=== PATIENT | male | born 1955 | race African-American/Black ===

== ENCOUNTER 2022-07-26 15:31 | Inpatient (IN) | payer OTHER ==
[~2022-07-26] VITALS: Ht 182.9 cm; Wt 122.0 kg
[2022-07-26 16:59] VITALS: BP 159/103
[2022-07-26 17:11] LABS: Basophils # (auto) 0.1 10 ^3/uL (0-0.2); Basophils % (auto) 1.2 % (0.0-2.0); Eosinophils # (auto) 0.1 10 ^3/uL (0-0.8); Eosinophils % (auto) 1.3 % (0.0-7.0); Hemoglobin 8.5 g/dL (13.5-17.5); Lymphocytes # (auto) 2.2 10 ^3/uL (0.4-5.4); Lymphocytes % (auto) 27.8 % (10.0-50.0); Mean Corpuscular Hemoglobin 19.7 pg (28.0-32.0); Mean Corpuscular Hgb Conc. 30.2 g/dL (32.0-36.0); Mean Corpuscular Volume 65.2 fL (80.0-100.0); Monocytes # (auto) 0.6 10 ^3/uL (0-1.3); Monocytes % (auto) 6.9 % (0.0-12.0); Neutrophils % (auto) 62.8 % (37.0-80.0); Nucleated Red Blood Cells % 0.5 %
[2022-07-26 17:12] LABS: Red Cell Distribution Width 22.9 % (11.8-14.3)
[2022-07-26 17:23] LABS: Calcium 8.9 mg/dL (8.5-10.1); Magnesium 2.2 mg/dL (1.6-2.6); Potassium 3.8 mmol/L (3.5-5.1)
[2022-07-26 17:24] VITALS: BP 159/103
[2022-07-26 17:27] LABS: BUN/Creatinine Ratio 8.9 (10.0-20.0); Bilirubin, Total 1.2 mg/dL (0.2-1.0); Total Protein 8.3 g/dL (6.4-8.2)
[2022-07-26 17:29] LABS: INR 1.38 (0.9-1.15); Partial Thromboplastin Time 30.5 sec (24.6-33.4)
[2022-07-26] MEDS ORDERED: ALBUTEROL SULF 2.5 MG/0.5ML(0.5%) NEB SOLN NEB ONE (17:45)
[2022-07-26] MEDS ORDERED: DexAMETHasone SOD PHOS 10MG/1ML VIAL INJ IV ONE (17:45)
[2022-07-26] MEDS ORDERED: FUROSEMIDE 100 MG/10ML VIAL IV ONE (17:45)
[2022-07-26] MEDS ORDERED: IPRATROPIUM BROM 0.5 MG/2.5ML INH SOL NEB ONE (17:45)
[2022-07-26] MEDS ORDERED: DOXYCYCLINE 100 MG TAB/CAP PO ONE (18:00)
[2022-07-26 18:32] VITALS: BP 173/103
[2022-07-26] MEDS: MAGNESIUM SULFATE 1GM/100ML 100 ML IV SCH ×2 (18:59→22:51)
[2022-07-26 19:55] VITALS: BP 170/109
[2022-07-26] MEDS ORDERED: ONDANSETRON HCL 4 MG/2 ML VIAL IV PRN (22:45)
[2022-07-26] MEDS ORDERED: DEXTROSE (50%) 50ML SYRG IV PRN (22:45)
[2022-07-26] MEDS ORDERED: ALBUTEROL SULF 2.5 MG/0.5ML(0.5%) NEB SOLN NEB PRN (22:45)
[2022-07-26] MEDS ORDERED: HYDROcodone-ACET 5/325MG TAB PO PRN (22:45)
[2022-07-26] MEDS ORDERED: DOCUSATE SOD 100 MG CAP PO PRN (22:45)
[2022-07-26] MEDS ORDERED: ACETAMINOPHEN 325 MG TAB PO PRN (22:45)
[2022-07-26] MEDS ORDERED: IPRATROPIUM BROM 0.5 MG/2.5ML INH SOL NEB PRN (22:45)
[2022-07-26] MEDS ORDERED: MAGNESIUM SULFATE 1GM/100ML 100 ML IV ONE (22:51)
[2022-07-26] MEDS ORDERED: NITROGLYCERIN 0.4 MG SL TAB SL PRN (23:45)
[2022-07-26] MEDS ORDERED: MORPHINE SULFATE INJ 2 MG/ml SYRG IV PRN (23:45)
[2022-07-27] VITALS (8 sets, daily range): BP systolic 138–184; BP diastolic 85–113
[2022-07-27] MEDS: hydrALAZINE HCL 20 MG/ML VL IV PRN ×2 (00:29→12:40)
[2022-07-27] MEDS ORDERED: hydrALAZINE HCL 20 MG/ML VL ONE (00:29)
[2022-07-27 00:52] LABS: Urine Bacteria NONE SEEN /hpf (None Seen); Urine Blood Negative /uL (Negative); Urine Specific Gravity 1.007 (1.001-1.035); Urine WBC 1 /hpf (0 - 3)
[2022-07-27] MEDS: DOXYCYCLINE 100MG/250ML 250 ML IV SCH ×3 (00:55→22:28)
[2022-07-27] MEDS ORDERED: amLODIPine BESYLATE 5 MG TAB PO ONE (05:00)
[2022-07-27] MEDS ORDERED: hydrALAZINE HCL 20 MG/ML VL IV ONE (05:00)
[2022-07-27 05:45] LABS: Basophils # (auto) 0 10 ^3/uL (0-0.2); Eosinophils # (auto) 0 10 ^3/uL (0-0.8); Hematocrit 27.7 % (41.0-53.0); Hemoglobin 8.4 g/dL (13.5-17.5); Monocytes # (auto) 0.1 10 ^3/uL (0-1.3)
[2022-07-27 05:48] LABS: Basophils % (auto) 0.2 % (0.0-2.0); Lymphocytes # (auto) 0.3 10 ^3/uL (0.4-5.4); Lymphocytes % (auto) 6.5 % (10.0-50.0); Mean Corpuscular Hemoglobin 19.6 pg (28.0-32.0); Mean Corpuscular Hgb Conc. 30.3 g/dL (32.0-36.0); Mean Corpuscular Volume 64.9 fL (80.0-100.0); Monocytes % (auto) 1.9 % (0.0-12.0); Neutrophils # (auto) 4.5 10 ^3/uL (1.6-8.6); Neutrophils % (auto) 91.4 % (37.0-80.0); Nucleated Red Blood Cells % 1.1 %; Red Blood Cells 4.26 10^6/uL (4.5-5.90); White Blood Cell 4.9 10^3/uL (4.4-10.8)
[2022-07-27 05:52] LABS: Red Cell Distribution Width 22.5 % (11.8-14.3)
[2022-07-27] MEDS: SODIUM CHLOR 0.9% PF (SALINE LOCK) 10ML VIAL/SYR IV SCH ×3 (05:59→22:02)
[2022-07-27] MEDS ORDERED: methylPREDNISolone SOD SUCC 40 MG/ML VL IV SCH (06:00)
[2022-07-27 06:07] LABS: Potassium 3.7 mmol/L (3.5-5.1)
[2022-07-27 06:29] LABS: BUN/Creatinine Ratio 13.1 (10.0-20.0); Bilirubin, Total 0.8 mg/dL (0.2-1.0); Total Protein 8.7 g/dL (6.4-8.2)
[2022-07-27] MEDS: ACCU-CHEK COMFORT CURVE STRIP VI SCH ×4 (07:03→22:02)
[2022-07-27] MEDS: InsuLIN REG 1unit/0.01ml Soln (100units/ml) SC SCH ×4 (07:12→22:32)
[2022-07-27] MEDS ORDERED: ALBUTEROL SULF 2.5 MG/0.5ML(0.5%) NEB SOLN NEB PRN (09:00)
[2022-07-27] MEDS ORDERED: OSELTAMIVIR 75 MG CAP PO ONE (10:45)
[2022-07-27] MEDS: FUROSEMIDE 100 MG/10ML VIAL IV SCH (10:55)
[2022-07-27] MEDS: FAMOTIDINE (10MG/ML) 2ML VL IV SCH (10:55)
[2022-07-27] MEDS: ASPirin 81 mg TAB PO SCH (10:55)
[2022-07-27] MEDS: amLODIPine BESYLATE 5 MG TAB PO SCH (10:56)
[2022-07-27] MEDS: CARVEDILOL 12.5 MG TAB PO SCH ×2 (10:56→22:02)
[2022-07-27] MEDS: APIXABAN 5 MG TAB PO SCH ×2 (10:56→21:58)
[2022-07-27] MEDS: ALBUTEROL SULF 2.5 MG/0.5ML(0.5%) NEB SOLN NEB SCH ×3 (11:50→23:56)
[2022-07-27] MEDS: IPRATROPIUM BROM 0.5 MG/2.5ML INH SOL NEB SCH ×3 (11:50→23:56)
[2022-07-27] MEDS ORDERED: AMLO-489 PO (13:25)
[2022-07-27] MEDS ORDERED: POTA10TA51 PO (13:25)
[2022-07-27] MEDS ORDERED: LOSA25TA38 PO (13:25)
[2022-07-27] MEDS ORDERED: ALBU108A5 IN (13:25)
[2022-07-27] MEDS ORDERED: FLUT0.05 INH (13:25)
[2022-07-27] MEDS ORDERED: INSU1INJ19 SC (13:25)
[2022-07-27] MEDS ORDERED: IBUP800T27 PO (13:25)
[2022-07-27] MEDS ORDERED: APIX5TAB PO (13:25)
[2022-07-27] MEDS ORDERED: NORT25CA PO (13:25)
[2022-07-27] MEDS ORDERED: INSU100I44 SC (13:25)
[2022-07-27] MEDS ORDERED: BUME1TAB3 PO (13:25)
[2022-07-27] MEDS ORDERED: PRAV20TA3 PO (13:25)
[2022-07-27] MEDS ORDERED: ATEN50TA PO (13:25)
[2022-07-27] MEDS ORDERED: SILD100T79 PO (13:25)
[2022-07-27] MEDS ORDERED: ASPI-543 PO (13:25)
[2022-07-27] MEDS: OSELTAMIVIR 75 MG CAP PO SCH (21:58)
[2022-07-28 02:55] VITALS: BP 131/86
[2022-07-28 05:26] LABS: Basophils # (auto) 0 10 ^3/uL (0-0.2); Basophils % (auto) 0.2 % (0.0-2.0); Eosinophils # (auto) 0 10 ^3/uL (0-0.8); Mean Corpuscular Volume 64.6 fL (80.0-100.0); Monocytes # (auto) 0.9 10 ^3/uL (0-1.3); Nucleated Red Blood Cells % 0.4 %; White Blood Cell 8.7 10^3/uL (4.4-10.8)
[2022-07-28 05:30] LABS: Hematocrit 24.7 % (41.0-53.0); Hemoglobin 7.6 g/dL (13.5-17.5); Lymphocytes # (auto) 0.8 10 ^3/uL (0.4-5.4); Lymphocytes % (auto) 9.3 % (10.0-50.0); Monocytes % (auto) 10.5 % (0.0-12.0); Red Blood Cells 3.82 10^6/uL (4.5-5.90)
[2022-07-28 05:36] LABS: Red Cell Distribution Width 22.8 % (11.8-14.3)
[2022-07-28 05:48] LABS: Albumin 2.6 g/dL (3.4-5.0)
[2022-07-28 05:54] LABS: BUN/Creatinine Ratio 18.4 (10.0-20.0); Bilirubin, Total 0.6 mg/dL (0.2-1.0); Total Protein 7.3 g/dL (6.4-8.2)
[2022-07-28] MEDS: SODIUM CHLOR 0.9% PF (SALINE LOCK) 10ML VIAL/SYR IV SCH ×3 (06:12→22:01)
[2022-07-28] MEDS: ACCU-CHEK COMFORT CURVE STRIP VI SCH ×4 (06:24→22:02)
[2022-07-28] MEDS: InsuLIN REG 1unit/0.01ml Soln (100units/ml) SC SCH ×4 (06:31→22:04)
[2022-07-28] MEDS: IPRATROPIUM BROM 0.5 MG/2.5ML INH SOL NEB SCH ×3 (06:48→23:00)
[2022-07-28] MEDS: ALBUTEROL SULF 2.5 MG/0.5ML(0.5%) NEB SOLN NEB SCH ×3 (06:48→23:00)
[2022-07-28 08:32] VITALS: BP 164/69
[2022-07-28] MEDS: FUROSEMIDE 100 MG/10ML VIAL IV SCH (09:14)
[2022-07-28] MEDS: ASPirin 81 mg TAB PO SCH (09:15)
[2022-07-28] MEDS: CARVEDILOL 12.5 MG TAB PO SCH ×2 (09:15→22:02)
[2022-07-28] MEDS: APIXABAN 5 MG TAB PO SCH ×2 (09:15→22:02)
[2022-07-28] MEDS: FAMOTIDINE (10MG/ML) 2ML VL IV SCH (09:15)
[2022-07-28] MEDS: OSELTAMIVIR 75 MG CAP PO SCH ×2 (09:16→22:02)
[2022-07-28] MEDS: amLODIPine BESYLATE 5 MG TAB PO SCH (09:16)
[2022-07-28] MEDS: DOXYCYCLINE 100MG/250ML 250 ML IV SCH ×2 (11:01→22:02)
[2022-07-28] MEDS: hydrALAZINE HCL 20 MG/ML VL IV PRN (12:13)
[2022-07-28 12:42] VITALS: BP 160/108
[2022-07-28] MEDS ORDERED: ALBUTEROL SULF 2.5 MG/0.5ML(0.5%) NEB SOLN NEB PRN (15:00)
[2022-07-28 16:31] VITALS: BP 111/73
[2022-07-28 22:00] VITALS: BP 134/84
[2022-07-29 05:00] VITALS: BP 153/83
[2022-07-29] MEDS: ACCU-CHEK COMFORT CURVE STRIP VI SCH ×4 (06:22→22:20)
[2022-07-29] MEDS: SODIUM CHLOR 0.9% PF (SALINE LOCK) 10ML VIAL/SYR IV SCH ×3 (06:22→22:21)
[2022-07-29] MEDS: InsuLIN REG 1unit/0.01ml Soln (100units/ml) SC SCH ×4 (06:27→22:20)
[2022-07-29] MEDS: IPRATROPIUM BROM 0.5 MG/2.5ML INH SOL NEB SCH ×3 (06:53→19:16)
[2022-07-29] MEDS: ALBUTEROL SULF 2.5 MG/0.5ML(0.5%) NEB SOLN NEB SCH ×3 (06:53→19:16)
[2022-07-29 09:00] VITALS: BP 137/86
[2022-07-29] MEDS: FUROSEMIDE 100 MG/10ML VIAL IV SCH (09:52)
[2022-07-29] MEDS: FAMOTIDINE (10MG/ML) 2ML VL IV SCH (09:52)
[2022-07-29] MEDS: ASPirin 81 mg TAB PO SCH (09:52)
[2022-07-29] MEDS: APIXABAN 5 MG TAB PO SCH ×2 (09:53→22:19)
[2022-07-29] MEDS: CARVEDILOL 12.5 MG TAB PO SCH ×2 (09:53→22:19)
[2022-07-29] MEDS: amLODIPine BESYLATE 5 MG TAB PO SCH (09:53)
[2022-07-29] MEDS: OSELTAMIVIR 75 MG CAP PO SCH ×2 (09:53→22:18)
[2022-07-29] MEDS: DOXYCYCLINE 100MG/250ML 250 ML IV SCH ×2 (09:54→22:21)
[2022-07-29 13:00] VITALS: BP 132/75
[2022-07-29 17:00] VITALS: BP 152/69
[2022-07-29] MEDS: hydrALAZINE HCL 20 MG/ML VL IV PRN (17:22)
[2022-07-29 22:00] VITALS: BP 189/99
[2022-07-29 23:58] VITALS: BP 142/86
[2022-07-30] MEDS: ALBUTEROL SULF 2.5 MG/0.5ML(0.5%) NEB SOLN NEB SCH ×4 (00:18→11:35)
[2022-07-30] MEDS: IPRATROPIUM BROM 0.5 MG/2.5ML INH SOL NEB SCH ×4 (00:19→11:35)
[2022-07-30 05:00] VITALS: BP 184/100
[2022-07-30] MEDS: SODIUM CHLOR 0.9% PF (SALINE LOCK) 10ML VIAL/SYR IV SCH (06:00)
[2022-07-30] MEDS: ACCU-CHEK COMFORT CURVE STRIP VI SCH ×2 (06:32→11:57)
[2022-07-30] MEDS: InsuLIN REG 1unit/0.01ml Soln (100units/ml) SC SCH ×3 (06:33→12:17)
[2022-07-30] MEDS ORDERED: cloNIDine HCL 0.1 MG TAB PO ONE (06:45)
[2022-07-30 08:30] VITALS: BP 139/76
[2022-07-30] MEDS: OSELTAMIVIR 75 MG CAP PO SCH (08:44)
[2022-07-30] MEDS: ASPirin 81 mg TAB PO SCH (08:44)
[2022-07-30] MEDS: APIXABAN 5 MG TAB PO SCH (08:44)
[2022-07-30] MEDS: FUROSEMIDE 100 MG/10ML VIAL IV SCH (08:45)
[2022-07-30] MEDS: CARVEDILOL 12.5 MG TAB PO SCH (08:45)
[2022-07-30] MEDS: FAMOTIDINE (10MG/ML) 2ML VL IV SCH (08:45)
[2022-07-30] MEDS: amLODIPine BESYLATE 5 MG TAB PO SCH (08:45)
[2022-07-30 09:00] VITALS: BP 139/76
[2022-07-30] MEDS: DOXYCYCLINE 100MG/250ML 250 ML IV SCH (09:17)
[2022-07-30 13:38] LABS: Hepatitis C Antibody Negative (Negative)
== END 2022-07-30 13:11 | disposition left against medical advice (07) | DRG 291 ==
LOC: ER 15:31 → TELE 23:43 → TELE-EAST 07-27 08:05
PROVIDERS: ADMIT Nurse Practitioner Family; ATTEND Internal Medicine
PROC: 5A09357 Assistance with Respiratory Ventilation, Less than 24 Consecutive Hours, Continuous Positive Airway Pressure (ICD-10-PCS; principal; 2022-07-26)
PROC: 5A09357 Assistance with Respiratory Ventilation, Less than 24 Consecutive Hours, Continuous Positive Airway Pressure (ICD-10-PCS; 2022-07-27)
PROC: 5A09357 Assistance with Respiratory Ventilation, Less than 24 Consecutive Hours, Continuous Positive Airway Pressure (ICD-10-PCS; 2022-07-28)
PROC: 5A09357 Assistance with Respiratory Ventilation, Less than 24 Consecutive Hours, Continuous Positive Airway Pressure (ICD-10-PCS; 2022-07-30)
DX: I50.33 Acute on chronic diastolic (congestive) heart failure (principal); J11.00 Influenza due to unidentified influenza virus with unspecified type of pneumonia; J96.01 Acute respiratory failure with hypoxia; N17.9 Acute kidney failure, unspecified; J44.0 Chronic obstructive pulmonary disease with (acute) lower respiratory infection; J44.1 Chronic obstructive pulmonary disease with (acute) exacerbation; J98.11 Atelectasis; Z68.43 Body mass index [BMI] 50.0-59.9, adult; Z20.822 Contact with and (suspected) exposure to COVID-19; D63.8 Anemia in other chronic diseases classified elsewhere; E66.01 Morbid (severe) obesity due to excess calories; I16.0 Hypertensive urgency; E11.9 Type 2 diabetes mellitus without complications; G47.33 Obstructive sleep apnea (adult) (pediatric); I48.91 Unspecified atrial fibrillation; Z53.29 Procedure and treatment not carried out because of patient's decision for other reasons; Z82.49 Family history of ischemic heart disease and other diseases of the circulatory system; Z87.891 Personal history of nicotine dependence
CPT/HCPCS: 36415; 36600; 71045; 71250; 80053; 81001; 82805; 82962; 83036; 83735; 83880; 84484; 85025; 85610; 85730; 86803; 87070; 87077; 87186; 87205; 87340; 87426; 87804; 93005; 93306; 94640; 94660; 96365; 96375; 99291; G0378; J1100; J1815; J3490

== ENCOUNTER 2023-10-11 11:50 | Emergency (ER) | payer MEDICARE, OTHER ==
[~2023-10-11] VITALS: Ht 182.9 cm; Wt 153.0 kg
[~2023-10-11 11:50] MED LIST: ALBU108A5 IN; AMLO1TAB22 PO; APIX5TAB PO; ASPI-543 PO; ATEN50TA PO; BUME1TAB3 PO; FLUT0.05 INH; IBUP-1456 PO; INSU100I54 SC; INSU1INJ19 SC; LOSA-533 PO; NORT25CA PO; POTA-36 PO; PRAV20TA3 PO; SILD100T79 PO
[2023-10-11 16:10] VITALS: BP 140/83; PULSE 78; RESP 19; TEMP 97.6; O2SAT 99
[2023-10-11 16:27] LABS: Chloride 96 mmol/L (98-107); Potassium 4.1 mmol/L (3.5-5.1); Sodium 133 mmol/L (136-145)
[2023-10-11 16:28] LABS: Anion Gap 8 (5-15); Calcium 9.5 mg/dL (8.7-10.4); Carbon Dioxide 29 mmol/L (20-30)
[2023-10-11 16:33] LABS: BUN/Creatinine Ratio 6.2 (10.0-20.0); Blood Urea Nitrogen 25 mg/dL (9-23); Glucose 337 mg/dL (74-106)
[2023-10-11 16:34] LABS: Magnesium 1.7 mg/dL (1.6-2.6)
[2023-10-11 16:35] LABS: Phosphorus 2.9 mg/dL (2.4-5.1)
[2023-10-11 16:37] LABS: Basophils # (auto) 0.1 10 ^3/uL (0-0.2); Eosinophils # (auto) 0.4 10 ^3/uL (0-0.8); Eosinophils % (auto) 6.1 % (0.0-7.0); Hematocrit 34.9 % (41.0-53.0); Hemoglobin 11.7 g/dL (13.5-17.5); Lymphocytes # (auto) 1.4 10 ^3/uL (0.4-5.4); Lymphocytes % (auto) 22.5 % (10.0-50.0); Mean Corpuscular Hemoglobin 27.7 pg (28.0-32.0); Mean Corpuscular Hgb Conc. 33.5 g/dL (32.0-36.0); Mean Corpuscular Volume 82.5 fL (80.0-100.0); Monocytes # (auto) 0.7 10 ^3/uL (0-1.3); Monocytes % (auto) 11.3 % (0.0-12.0); Neutrophils # (auto) 3.7 10 ^3/uL (1.6-8.6); Neutrophils % (auto) 59.1 % (37.0-80.0); Nucleated Red Blood Cells % 0.1 %; Red Blood Cells 4.23 10^6/uL (4.5-5.90); Red Cell Distribution Width 15.3 % (11.8-14.3); White Blood Cell 6.3 10^3/uL (4.4-10.8)
[2023-10-11] MEDS: METOCLOPRAMIDE HCL 5MG/ml INJ 2ml VIAL IV ONE (17:40)
== END 2023-10-11 17:50 | disposition home or self-care (01) ==
LOC: ER 11:50
DX: T82.7XXA Infection and inflammatory reaction due to other cardiac and vascular devices, implants and grafts, initial encounter (principal); M79.601 Pain in right arm; R25.2 Cramp and spasm; I13.2 Hypertensive heart and chronic kidney disease with heart failure and with stage 5 chronic kidney disease, or end stage renal disease; E11.22 Type 2 diabetes mellitus with diabetic chronic kidney disease; N18.6 End stage renal disease; I50.9 Heart failure, unspecified; I48.91 Unspecified atrial fibrillation; J44.9 Chronic obstructive pulmonary disease, unspecified; Z98.890 Other specified postprocedural states; Z99.2 Dependence on renal dialysis; Z79.82 Long term (current) use of aspirin; Z79.899 Other long term (current) drug therapy; Y92.89 Other specified places as the place of occurrence of the external cause
CPT/HCPCS: 36415; 71046; 80048; 83735; 84100; 85025; 96374; 99284; J2765

== ENCOUNTER 2024-05-28 14:03 | Inpatient (IN) | payer MEDICARE, OTHER ==
[~2024-05-28] VITALS: Ht 190.5 cm; Wt 121.9 kg
--- NOTE | 2024-05-28 14:44 | ED.PDOC ---
HPI (NEURO) HPI Comments 68y M who presents to the ED via EMS for chief complaint of dizziness. Per EMS, pt had CKF and was at dialysis today and staff states they checked vitals before dialysis treatment, and called EMS after pt had noted systolic blood pressure in the 70's and pt started to complaint of dizziness. EMS arrived on scene and laid pt down on gurney and states pt started to feel less dizzy. Pt has BP checked at noted BP was normotensive with all other vitals in normal range and pt was brought to the ED. Pt in the ED, states he is feeling weak with some mild dizziness. Pt states he recently was released from hospital 2 weeks prior after he states he was hospitalized for Sh[place] syndrome. Pt now in the ED, has noted stable vitals with BP of 123/69 with all other vitals in normal range. Pt otherwise denies any other symptoms at this time. Chief Complaint: Dizziness Time Seen by MD: 14:37 Primary Care Provider: NILE Hart Notes: [employer] Notes Information Source: Patient, Emergency Med Personnel Mode of Arrival: EMS Brought in by: EMS Severity: Moderate Dizziness/Weakness Severity: Does not affect activitie Headache Severity: Moderate Timing: Hours Duration: Since onset Prehospital treatment: None Weakness Location: Generalized Onset: At rest Circumstances: Spontaneous Symptoms: Weakness History of: None Modifying factors: Nothing Associated Signs and Symptoms: None Past Medical History PAST MEDICAL HISTORY: AFIB, CHF, CKF, COPD, DM, High Lipids, HTN Past Medical History (Other): gout, shine heath syndrome Surgical History: Hernia Repair Family History Family History: Reviewed,noncontributory to illness Social History Smoker: Non-Smoker Alcohol: Denies ETOH Use Drugs: Denies Drug Use Lives In: Home Constitutional: denies: chills, diaphoresis, fatigue, fever, malaise, sweats, weakness, others EENTM: denies: blurred vision, double vision, ear bleeding, ear discharge, ear drainage, ear pain, ear ringing, eye pain, eye redness, hearing loss, mouth pain, mouth swelling, nasal discharge, nose bleeding, nose congestion, nose pain, photophobia, tearing, throat pain, throat swelling, voice changes, others Respiratory: denies: cough, hemoptysis, orthopnea, SOB at rest, shortness of breath, SOB with excertion, stridor, wheezing, others Cardiovascular: denies: chest pain, dizzy spells, diaphoresis, Dyspnea on exertion, edema, irregular heart beat, left arm pain, lightheadedness, pal pitations, PND, syncope, others Gastrointestinal: denies: abdomen distended, abdominal pain, blood streaked bowels, constipated, diarrhea, dysphagia, difficulty swallowing, hematemesis, melena, nausea, poor appetite, poor fluid intake, rectal bleeding, rectal pain, vomiting, others Genitourinary: denies: burning, dysuria, flank pain, frequency, hematuria, incontinence, penile discharge, penile sore, pain, testicle pain, testicle swelling, urgency, others Neurological: reports: dizziness, weakness; denies: fainting, headache, left sided numbness, left sided weakness, numbness, paresthesia, pre-existing deficit, right sided numbness, right sided weakness, seizure, speech problems, tingling, tremors, others Musculoskeletal: denies: back pain, gout, joint pain, joint swelling, muscle pain, muscle stiffness, neck pain, others Integumetry: denies: bruises, change in color, change in hair/nails, dryness, laceration, lesions, lumps, rash, wounds, others Allergic/Immunocompromised: denies: Difficulty Healing, Frequent Infections, Hives, Itching, others Hematologic/Lymphatic: denies: anemia, blood clots, easy bleeding, easy bruising, swollen glands, others Endocrine: denies: excessive hunger, excessive sweating, excessive thirst, excessive urination, flushing, intolerance to cold, intolerance to heat, unexp lained weight gain, unexplained weight loss, others Psychiatric: denies: anxiety, bipolar disorder, depression, hopeless, panic disorder, schizophrenia, sleepless, suicidal, others All Other Systems: Reviewed and Negative Physical Exam General Appearance: Moderate Distress HEENT: Normal ENT Inspection, Pharynx Normal, TMs Normal Neck: Full Range of Motion, Non-Tender, Normal, Normal Inspection Respiratory: Chest Non-Tender, Lungs Clear, No Accessory Muscle Use, No Respiratory Distress, Normal Breath Sounds Cardiovascular: No Edema, No JVD, No Murmur, No Gallop, Normal Peripheral Pulses, Regular Rate/Rhythm Breast Exam: Deferred Gastrointestinal: No Organomegaly, Non Tender, No Pulsatile Mass, Normal Bowel Sounds, Soft Genitalia: Deferred Pelvic: Deferred Rectal: Deferred Extremities: No calf tenderness, Normal capillary refill, No pedal edema, Other (The dialysis fistulas in the right upper arm) Musculoskeletal : Apperance: Normal Neurologic: Alert, 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 Was a procedure done?: No Differential Diagnosis (SZ) Seizure: N/A General Weakness: Anemia, Dehydration, Dysrhythmia, Hypoglycemia, Hypotension, Hypovolemia, Renal failure, TIA, Vertigo: central, Vertigo: peripheral, Other X-Ray, Labs, Meds, VS Vital Signs Date Time Temp Pulse Resp B/P (MAP) Pulse Ox O2 Delivery O2 Flow Rate FiO2 05/28/24 16:00 62 19 101/85 (90) 99 05/28/24 16:00 62 19 99 Room Air* 0 21 05/28/24 14:46 68 05/28/24 14:43 68 05/28/24 14:16 98.2 62 16 123/69 (87) 93 Lab Test 05/28/24 15:25 Range/Units White Blood Count 5.8 4.4-10.8 10^3/uL Red Blood Count 3.52 L 4.5-5.90 10^6/uL Hemoglobin 9.6 L 13.5-17.5 g/dL Hematocrit 30.1 L 41.0-53.0 % Mean Corpuscular Volume 85.5 80.0-100.0 fL Mean Corpuscular Hemoglobin 27.3 L 28.0-32.0 pg Mean Corpuscular Hemoglobin Concent 31.9 L 32.0-36.0 g/dL Red Cell Distribution Width 16.0 H 11.8-14.3 % Platelet Count 226 140-450 10^3/uL Mean Platelet Volume 8.2 6.9-10.8 fL Neutrophils (%) (Auto) 68.6 37.0-80.0 % Lymphocytes (%) (Auto) 17.4 10.0-50.0 % Monocytes (%) (Auto) 9.6 0.0-12.0 % Eosinophils (%) (Auto) 3.3 0.0-7.0 % Basophils (%) (Auto) 1.1 0.0-2.0 % Neutrophils # (Auto) 4.0 1.6-8.6 10 ^3/uL Lymphocytes # (Auto) 1.0 0.4-5.4 10 ^3/uL Monocytes # (Auto) 0.6 0-1.3 10 ^3/uL Eosinophils # (Auto) 0.2 0-0.8 10 ^3/uL Basophils # (Auto) 0.1 0-0.2 10 ^3/uL Nucleated Red Blood Cells 0.4 % Sodium Level 138 136-145 mmol/L Potassium Level 2.9 L 3.5-5.1 mmol/L Chloride Level 97 L 98-107 mmol/L Carbon Dioxide Level 30 20-31 mmol/L Anion Gap 11 5-15 Blood Urea Nitrogen 26 H 9-23 mg/dL Creatinine 6.93 H 0.700-1.30 mg/dL Glomerular Filtration Rate Calc 8 >90 mL/min BUN/Creatinine Ratio 3.8 L 10.0-20.0 Serum Glucose 85 74-106 mg/dL Calcium Level 9.4 8.7-10.4 mg/dL Magnesium Level 2.0 1.6-2.6 mg/dL Troponin I High Sensitivity 15 </=54 ng/L IV Hep-Lock was established. The CBC and chemistry panel are within normal limits except for anemia with a hemoglobin of 9.6 and hematocrit of 30.1 The BUN is 26 and the creatinine is 6.93 The patient was potassium is 2.9 At this time we are going to admit the patient to the hospitalist We will get a Nephrology consult prior to any supplements of potassium The patient was being admitted Time of 1ST Reevaluation: 15:10 Reevaluation 1ST: Unchanged Patient Education/Counseling: Diagnosis, Treatment, Prognosis Family Education/Counseling: No Family Present Additional Information - I reviewed the following notes from patient's past medical encounters: - The following tests were ordered, and results were reviewed by me: (Labs, X- Ray, EKG): cbc, , trop x3, ekg x3, bmp, , mag - Additional information was gathered from interviewing the following independent Historian: (Family, Other Providers, EMT): EMS - I reviewed and agreed with the following test results read by other provider: (X-ray, CT, US):none - I discussed treatments and results with medical personnel and: (consultants, family): none Departure 1 Departure Time of Disposition: 16:56 Impression: Primary Impression: Generalized weakness Additional Impressions: Hypokalemia ESRD on dialysis Disposition: ADMITTED INPATIENT Admit to: Tele Condition: Fair Critical Care Note Critical Care Time?: Yes (45 min-critical care time only) Stability Stability form required: Yes Unstable for transfer: Telemetry monitoring (Telemetry monitoring required), ED Physician Assesment (Clinical assesment) Heart Score Heart Score: Heart Score Response (Comments) Value History Moderate Suspicious 1 EKG Normal 0 Age >65 2 Risk Factors >3 or Hx ASHD 2 Troponin Normal limit 0 Total 5 I personally scribed for ADY LARSON MD ([email or web address]) on 05/28/24 at 14:44. Electronically submitted by Clarisse Leyva ([employer]). I personally scribed for ADY LARSON MD ([email or web address]) on 05/28/24 at 14:46. Electronically submitted by Clarisse Leyva (MARLEEAmerican GiantSHAYAN). ADY LARSON MD May 28, 2024 14:44
--- NOTE | 2024-05-28 15:06 | ECG ---
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
[2024-05-28 15:53] LABS: Basophils # (auto) 0.1 10 ^3/uL (0-0.2); Basophils % (auto) 1.1 % (0.0-2.0); Eosinophils # (auto) 0.2 10 ^3/uL (0-0.8); Eosinophils % (auto) 3.3 % (0.0-7.0); Hematocrit 30.1 % (41.0-53.0); Hemoglobin 9.6 g/dL (13.5-17.5); Lymphocytes % (auto) 17.4 % (10.0-50.0); Mean Corpuscular Hemoglobin 27.3 pg (28.0-32.0); Mean Corpuscular Hgb Conc. 31.9 g/dL (32.0-36.0); Mean Corpuscular Volume 85.5 fL (80.0-100.0); Monocytes # (auto) 0.6 10 ^3/uL (0-1.3); Monocytes % (auto) 9.6 % (0.0-12.0); Neutrophils % (auto) 68.6 % (37.0-80.0); Nucleated Red Blood Cells % 0.4 %; Platelet Count (auto) 226 10^3/uL (140-450); Red Blood Cells 3.52 10^6/uL (4.5-5.90); White Blood Cell 5.8 10^3/uL (4.4-10.8)
[2024-05-28 15:58] LABS: Sodium 138 mmol/L (136-145)
[2024-05-28 15:59] LABS: Anion Gap 11 (5-15); Carbon Dioxide 30 mmol/L (20-31)
[2024-05-28 16:00] VITALS: PULSE 62; RESP 19; O2SAT 99
[2024-05-28 16:00] LABS: Calcium 9.4 mg/dL (8.7-10.4)
[2024-05-28 16:04] LABS: BUN/Creatinine Ratio 3.8 (10.0-20.0); Glucose 85 mg/dL (74-106)
[2024-05-28 16:06] LABS: Blood Urea Nitrogen 26 mg/dL (9-23); Chloride 97 mmol/L (98-107); Potassium 2.9 mmol/L (3.5-5.1)
[2024-05-28 21:30] VITALS: PULSE 66; RESP 18; O2SAT 99
[2024-05-28] MEDS ORDERED: NITROGLYCERIN 0.4 MG SL TAB SL PRN (22:00)
[2024-05-28] MEDS ORDERED: MORPHINE SULFATE INJ 2 MG/ml SYRG IV PRN (22:00)
[2024-05-29] VITALS (9 sets, daily range): BP systolic 117–139; BP diastolic 61–83; PULSE 60–77; RESP 15–19; TEMP 97.4–98.1; O2SAT 92–99
[2024-05-29] MEDS: POTASSIUM CHL 20 Meq TABLET PO ONE (00:07)
[2024-05-29] MEDS: APIXABAN 5 MG TAB PO SCH (00:08)
[2024-05-29 01:30] LABS: COVID19 ANTIGEN SOFIA FIA NEGATIVE (NEGATIVE); Rapid Influenza A Negative (Negative); Rapid Influenza B Negative (Negative)
--- NOTE | 2024-05-29 03:13 | DVHHPRES ---
History of Present Illness Resident Creating Document: LUCY PHAM RESIDENT Reason for Visit: Hypokalemia History of Present Illness A 68 y old male with PMHx ESRD (dialysis T,Th, S, [facility]), CHF, atrial fibrillation, DM, HTN, COPD, HLD who came BIBA due to hypotension, patient was in dialysis center and was found with BP in the 70s, dialysis was not done. Patient states dizziness. Patient states that he had a SJR due to allopurinal 2 weeks back and was treated in another facility Home meds: Apixaban amlodipine aspirin atenolol bumetanide the fluticasone ibuprofen insulin losartan nortriptyline potassium pravastatin sildenafil Review of Systems Constitutional: No: Fever, Chills, Sweats, Weakness, Malaise, Other Eyes: No: Pain, Vision change, Conjunctivae inflammation, Eyelid inflammation, Other, Redness ENT: No: Ear pain, Ear discharge, Nose pain, Nose discharge, Nose congestion, Mouth pain, Mouth swelling, Throat pain, Throat swelling, Other Respiratory: No: Cough, Dry, Shortness of breath, SOB with excertion, Wheezing, Hemoptysis, Pleuritic Pain, Sputum, Wheezing, Other Cardiovascular: No: Chest Pain, Palpitations, Orthopnea, Paroxysmal Noc. Dyspnea, Edema, Lt Headedness, Other Gastrointestinal: No: Nausea, Vomiting, Abdominal Pain, Diarrhea, Constipation, Melena, Hematochezia, Other Genitourinary: No Dysuria, No Frequency, No Incontinence, No Hematuria, No Retention, No Other Musculoskeletal: No: other, neck pain, shoulder pain, arm pain, back pain, hand pain, leg pain, foot pain Skin: No: Rash, Lesions, Jaundice, Bruising, Other Neurological: Weakness; No: Numbness, Incoordination, Change in speech, Confusion, Seizures, Other Allergies: Coded Allergies: Allopurinol (Verified Allergy, Unknown, 05/28/24) NSAIDs (Verified Allergy, Unknown, 05/28/24) Medications Current Medications Medications Dose Ordered Sig/Pedro Route Start Time Stop Time Status Last Admin Dose Admin Nitroglycerin 0.4 mg Q5MINP PRN SL 05/28/24 22:00 Morphine Sulfate 2 mg Q30M PRN IV 05/28/24 22:00 Apixaban 5 mg BID PO 05/28/24 22:00 05/29/24 00:08 5 MG Exam Vital Signs Vital Signs Date Time Temp Pulse Resp B/P (MAP) Pulse Ox O2 Delivery O2 Flow Rate FiO2 05/29/24 00:27 67 15 99 Nasal Cannula* 3 32 05/29/24 00:22 98.4 98.4 05/28/24 23:50 109/67 (81) General Appearance: Alert, Oriented X3, Cooperative HEENT: Atraumatic, PERRLA, EOMI Respiratory: Clear to auscultation Cardiovascular: Regular rate, Normal S1 Abdominal: Normal bowel sounds, Soft Extremities: Other (edema 1+, patient has multiple hypopigmented lessions, all over the body ) Neuro: Normal gait, Normal speech Psych/Mental Status: Mental status NL, Mood NL Labs/Xrays Labs Test 05/29/24 01:20 05/28/24 23:55 05/28/24 19:11 05/28/24 15:25 Range/Units Potassium Level 3.4 L 3.5-5.1 mmol/L Influenza Type A Antigen Negative Negative Influenza Type B Antigen Negative Negative SARS-CoV-2 Antigen (Rapid) Negative NEGATIVE Magnesium Level 2.1 1.6-2.6 mg/dL Troponin I High Sensitivity 15 </=54 ng/L White Blood Count 5.8 4.4-10.8 10^3/uL Red Blood Count 3.52 L 4.5-5.90 10^6/uL Hemoglobin 9.6 L 13.5-17.5 g/dL Hematocrit 30.1 L 41.0-53.0 % Mean Corpuscular Volume 85.5 80.0-100.0 fL Mean Corpuscular Hemoglobin 27.3 L 28.0-32.0 pg Mean Corpuscular Hemoglobin Concent 31.9 L 32.0-36.0 g/dL Red Cell Distribution Width 16.0 H 11.8-14.3 % Platelet Count 226 140-450 10^3/uL Mean Platelet Volume 8.2 6.9-10.8 fL Neutrophils (%) (Auto) 68.6 37.0-80.0 % Lymphocytes (%) (Auto) 17.4 10.0-50.0 % Monocytes (%) (Auto) 9.6 0.0-12.0 % Eosinophils (%) (Auto) 3.3 0.0-7.0 % Basophils (%) (Auto) 1.1 0.0-2.0 % Neutrophils # (Auto) 4.0 1.6-8.6 10 ^3/uL Lymphocytes # (Auto) 1.0 0.4-5.4 10 ^3/uL Monocytes # (Auto) 0.6 0-1.3 10 ^3/uL Eosinophils # (Auto) 0.2 0-0.8 10 ^3/uL Basophils # (Auto) 0.1 0-0.2 10 ^3/uL Nucleated Red Blood Cells 0.4 % Sodium Level 138 136-145 mmol/L Chloride Level 97 L 98-107 mmol/L Carbon Dioxide Level 30 20-31 mmol/L Anion Gap 11 5-15 Blood Urea Nitrogen 26 H 9-23 mg/dL Creatinine 6.93 H 0.700-1.30 mg/dL Glomerular Filtration Rate Calc 8 >90 mL/min BUN/Creatinine Ratio 3.8 L 10.0-20.0 Serum Glucose 85 74-106 mg/dL Calcium Level 9.4 8.7-10.4 mg/dL Assessment/Plan Assessment/Plan #Hypokalemia resolved #Hypotension #ESRD on hemodialysis #Chronic diastolic heart failure #Diabetes mellitus type 2 #Paroxysmal atrial fibrillation #HTN #COPD #Anemia - likely due to ESRD Admit Telemetry Renal diet Single dose of K PO 40 mEq: K+ 1am: 3.4 BPs are getting better, hold on BP medication Apixaban 5 mg BID Consult nephrology: [facility] for am Chest xray Case discussed with Dr Doe Time spent on care 23 min Plan discussed with: Patient, Other (rn) My Orders Orders - LUCY PHAM RESIDENT Procedure Category Date Status Time Admit ADMIT 05/28/24 Transmitted 21:51 Nitroglycerin PHA 05/28/24 In Process Sublingual (Ntrostat 22:00 Morphine Sulfate PHA 05/28/24 In Process Injection 22:00 Oxygen By Nasal RT 05/28/24 Transmitted Cannula 21:51 Stat Ekg For Chest JEANNIE 05/28/24 In Process Pain 21:51 Notify Of Changes JEANNIE 05/28/24 In Process From Base 21:51 Appian Developer For JEANNIE 05/28/24 In Process 24 Hours 21:51 Emergency Dysrhythmia JEANNIE 05/28/24 In Process Protocol 21:51 Rhythm Strips Once JEANNIE 05/28/24 In Process Every Shift 21:51 Apixaban (Eliquis) PHA 05/28/24 In Process 22:00 *Dr. [facility] -[facility] CONS 05/28/24 Transmitted Noris 22:01 Renal DIET 05/29/24 Transmitted Standard(2gna,3gk,Lopho) Breakfast Complete Blood Count LAB 05/29/24 Logged 04:00 Comprehensive LAB 05/29/24 Logged Metabolic Panel 04:00 Thyroid Stimulating LAB 05/29/24 Logged Hormone 04:00 Hemoglobin A1c LAB 05/29/24 Logged 04:00 Stool Occult Blood LAB 05/29/24 Logged 02:45 B-Type Natriuretic LAB 05/29/24 Logged Peptide 02:48 Chest Xray 1 View XY 05/29/24 Logged 02:48 Date of Service: May 28, 2024 Billing Provider: TAYLOR DOE MD Common Visit Codes: 80126-DIUMHKA INP/OBS CARE (HIGH) Secondary Visit Codes: [id number]-[id number] CARE PLAN 30 MINUTES LUCY PHAM RESIDENT May 29, 2024 03:13 TAYLOR DOE MD May 29, 2024 11:46
--- NOTE | 2024-05-29 05:31 | DVH ---
EXAM: XR Chest, 1 View CLINICAL INDICATION: dyspnea TECHNIQUE: Frontal view of the chest. COMPARISON: XY CHEST PORTABLE on DOS: 07/28/22, XY CHEST PORTABLE on DOS: 07/26/22 FINDINGS: LUNGS AND PLEURAL SPACES: See below. HEART: Cardiomegaly with mild congestion. MEDIASTINUM: Unremarkable. Normal mediastinal contour. BONES/JOINTS: Unremarkable. No acute fracture. OTHER FINDINGS: . None. .. ... IMPRESSION: Cardiomegaly with mild congestion.
[2024-05-29 06:12] LABS: Eosinophils # (auto) 0.1 10 ^3/uL (0-0.8); Lymphocytes # (auto) 1.2 10 ^3/uL (0.4-5.4); Monocytes # (auto) 0.7 10 ^3/uL (0-1.3); Neutrophils # (auto) 3.6 10 ^3/uL (1.6-8.6); Platelet Count (auto) 196 10^3/uL (140-450)
[2024-05-29 06:16] LABS: Basophils # (auto) 0 10 ^3/uL (0-0.2); Basophils % (auto) 0.7 % (0.0-2.0); Eosinophils % (auto) 2.6 % (0.0-7.0); Hematocrit 27.9 % (41.0-53.0); Hemoglobin 8.9 g/dL (13.5-17.5); Lymphocytes % (auto) 20.6 % (10.0-50.0); Mean Corpuscular Hemoglobin 27.1 pg (28.0-32.0); Mean Corpuscular Hgb Conc. 31.8 g/dL (32.0-36.0); Monocytes % (auto) 12.5 % (0.0-12.0); Neutrophils % (auto) 63.6 % (37.0-80.0); Nucleated Red Blood Cells % 0.1 %; Red Blood Cells 3.28 10^6/uL (4.5-5.90); Red Cell Distribution Width 16.4 % (11.8-14.3); White Blood Cell 5.6 10^3/uL (4.4-10.8)
[2024-05-29 06:22] LABS: Alanine Aminotransferase < 9 U/L (7-40); Albumin 3.5 g/dL (3.2-4.8); Alkaline Phosphatase 105 U/L (46-116); Anion Gap 12 (5-15); Aspartate Aminotransferase 11 U/L (13-40); BUN/Creatinine Ratio 3.9 (10.0-20.0); Bilirubin, Total 0.3 mg/dL (0.2-1.0); Blood Urea Nitrogen 30 mg/dL (9-23); Calcium 9.2 mg/dL (8.7-10.4); Carbon Dioxide 29 mmol/L (20-31); Chloride 98 mmol/L (98-107); Glucose 99 mg/dL (74-106); Potassium 3.1 mmol/L (3.5-5.1); Sodium 139 mmol/L (136-145); Total Protein 6.6 g/dL (5.7-8.2)
[2024-05-29 06:24] LABS: % Iron Saturation 23.6 % (20-55)
[2024-05-29 06:57] LABS: CRP High Sensitivity 0.81 mg/dL (<1.0)
[2024-05-29 07:08] LABS: Erythrocyte Sedimentation Rate 28 mm/hr (0-20)
[2024-05-29 07:14] LABS: INR 1.24 (0.9-1.15); Partial Thromboplastin Time 29.7 SEC (24.5-34.5); Prothrombin Time 12.9 sec (9.3-11.8)
[2024-05-29] MEDS: POTASSIUM EFFERVESENT TAB 25 MEQ PO ONE (09:32)
[2024-05-29] MEDS: PANTOPRAZOLE 40 MG TAB PO ONE (09:32)
--- NOTE | 2024-05-29 10:39 | DVHINCON2 ---
Date of service: May 29, [address] Kolb Reason for Consultation ESKD on HD History of Present Illness A 68 y old male with PMHx ESRD (dialysis T,Th, S), CHF, atrial fibrillation, DM, HTN, COPD, HLD who came BIBA due to hypotension, patient was in dialysis center and was found with BP in the 70s, dialysis was not done. Patient states dizziness. Admitted for Chuy Johnsons secondary to Allopurinol 2 weeks ago . Initial w/up in ER showed evidence of hypokalemia and hence admitted Nephrology consulted for HD Past Medical History As above Past Surgical History As above Family History: FH: myocardial infarction G8 FATHER Hypertension G8 MOTHER Family History negative Social History negative Allergies: Coded Allergies: Allopurinol (Verified Allergy, Unknown, 05/28/24) NSAIDs (Verified Allergy, Unknown, 05/28/24) Home Meds Reported Medications Fluticasone Propionate (Fluticasone Propionate) 0.05 % Cre, 250 MCG INH PRN for wheezing for 30 Days, MCG 07/27/22 Insulin Glargine (Basaglar Kwikpen) 100 Unit/Ml Inj, 100 UNIT SC PRN for sliding scale, INJ 07/27/22 Insulin Lispro (Insulin Lispro Kwikpen) 100 Unit/Ml Inj, 0 SC, INJ 07/27/22 Albuterol Sulfate (Albuterol Sulfate Hfa) 108 Mcg/Act Aer, 90 MCG IN QIDPRN PRN for wheezing, AER 07/27/22 Potassium Chloride (POTASSIUM CHLORIDE CR) 10 Meq Tb, 1 TAB PO DAILY, #30 TAB 5 Refills 07/27/22 Sildenafil Citrate (Sildenafil) 100 Mg Tab, 100 MG PO DAILY, TAB 07/27/22 Nortriptyline Hcl (PAMELOR CAPSULE) 25 Mg Cp, 1 CAP PO QPM, #30 CAP 3 Refills 07/27/22 Bumetanide (Bumetanide) 1 Mg Tab, 1 MG PO BID for 30 Days, MG 07/27/22 Losartan Potassium (Losartan Potassium) 25 Mg Tab, 25 MG PO DAILY for 30 Days, MG 07/27/22 Ibuprofen (Ibuprofen) 800 Mg Tab, 800 MG PO TID for pain, MG 07/27/22 Apixaban Base (ELIQUIS) 5 Mg Tab, 5 MG PO BID, TAB 07/27/22 Pravastatin Sodium (PRAVACHOL TABLET) 20 Mg Tb, 40 TAB PO DAILY, TAB 07/27/22 Amlodipine Besylate (Amlodipine Besylate) 5 Mg Tab, 10 MG PO DAILY for 30 Days, MG 07/27/22 Aspirin (Aspir-Low) 81 Mg Tab, 81 MG PO DAILY for 30 Days, MG 07/27/22 Atenolol (Atenolol) 50 Mg Tab, 50 MG PO DAILY for 30 Days, MG 07/27/22 Current Medications Current Medications Medications (Trade) Dose Ordered Sig/Pedro Route PRN Reason Start Time Stop Time Status Last Admin Nitroglycerin (Ntrostat Sublingual) 0.4 mg Q5MINP PRN SL FOR CHEST PAIN 05/28/24 22:00 Morphine Sulfate 2 mg Q30M PRN IV FOR CHEST PAIN 05/28/24 22:00 Apixaban (Eliquis) 5 mg BID PO 05/28/24 22:00 05/29/24 09:32 Pantoprazole Sodium (Protonix Tablet) 40 mg DAILY@0600 PO 05/30/24 06:00 Review of Systems 12 point ROS negative except as stated in HPI Vital Signs Vital Signs Date Time Temp Pulse Resp B/P (MAP) Pulse Ox O2 Delivery O2 Flow Rate FiO2 05/29/24 08:15 97.6 68 19 127/83 (98) 98 97.6 05/29/24 02:49 Room Air* 0 21 Physical Exam General Appearance: Alert, Oriented X3, Cooperative HEENT: Atraumatic, PERRLA, EOMI Respiratory: Clear to auscultation Cardiovascular: Regular rate and rhythm Abdominal: Normal bowel sounds Extremities: trace edema Neuro: Normal gait, Normal speech Psych/Mental Status: Mental status NL, Mood NL Labs/Diagnostic Data Labs Test 05/29/24 06:48 05/29/24 05:10 05/28/24 23:55 05/28/24 19:11 Range/Units Prothrombin Time 12.9 H 9.3-11.8 sec Prothrombin Time INR 1.24 H 0.9-1.15 Activated Partial Thromboplast Time 29.7 24.5-34.5 SEC White Blood Count 5.6 4.4-10.8 10^3/uL Red Blood Count 3.28 L 4.5-5.90 10^6/uL Hemoglobin 8.9 L 13.5-17.5 g/dL Hematocrit 27.9 L 41.0-53.0 % Mean Corpuscular Volume 85.0 80.0-100.0 fL Mean Corpuscular Hemoglobin 27.1 L 28.0-32.0 pg Mean Corpuscular Hemoglobin Concent 31.8 L 32.0-36.0 g/dL Red Cell Distribution Width 16.4 H 11.8-14.3 % Platelet Count 196 140-450 10^3/uL Mean Platelet Volume 8.5 6.9-10.8 fL Neutrophils (%) (Auto) 63.6 37.0-80.0 % Lymphocytes (%) (Auto) 20.6 10.0-50.0 % Monocytes (%) (Auto) 12.5 H 0.0-12.0 % Eosinophils (%) (Auto) 2.6 0.0-7.0 % Basophils (%) (Auto) 0.7 0.0-2.0 % Neutrophils # (Auto) 3.6 1.6-8.6 10 ^3/uL Lymphocytes # (Auto) 1.2 0.4-5.4 10 ^3/uL Monocytes # (Auto) 0.7 0-1.3 10 ^3/uL Eosinophils # (Auto) 0.1 0-0.8 10 ^3/uL Basophils # (Auto) 0 0-0.2 10 ^3/uL Nucleated Red Blood Cells 0.1 % Erythrocyte Sedimentation Rate 28 H 0-20 mm/hr Sodium Level 139 136-145 mmol/L Potassium Level 3.1 L 3.5-5.1 mmol/L Chloride Level 98 98-107 mmol/L Carbon Dioxide Level 29 20-31 mmol/L Anion Gap 12 5-15 Blood Urea Nitrogen 30 H 9-23 mg/dL Creatinine 7.71 H 0.700-1.30 mg/dL Glomerular Filtration Rate Calc 7 >90 mL/min BUN/Creatinine Ratio 3.9 L 10.0-20.0 Serum Glucose 99 74-106 mg/dL Hemoglobin A1c < 3.8 <5.7 % A1C Calcium Level 9.2 8.7-10.4 mg/dL Iron Level 41 L 65-175 ug/dL Total Iron Binding Capacity 174 L 250-425 ug/dL Percent Iron Saturation 23.6 20-55 % Ferritin 759.3 H 22-322 ng/mL Total Bilirubin 0.3 0.2-1.0 mg/dL Aspartate Amino Transferase (AST) 11 L 13-40 U/L Alanine Aminotransferase (ALT) < 9 7-40 U/L Alkaline Phosphatase 105 46-116 U/L C-Reactive Protein High Sensitivity 0.81 <1.0 mg/dL B-Type Natriuretic Peptide 64.43 0-100 pg/mL Total Protein 6.6 5.7-8.2 g/dL Albumin 3.5 3.2-4.8 g/dL Thyroid Stimulating Hormone (TSH) 0.59 0.55-4.78 uIU/mL Influenza Type A Antigen Negative Negative Influenza Type B Antigen Negative Negative SARS-CoV-2 Antigen (Rapid) Negative NEGATIVE Magnesium Level 2.1 1.6-2.6 mg/dL Troponin I High Sensitivity 15 </=54 ng/L Assessment ESKD on HD Hypotension Hypokalemia h/o CHF DM II COPD Plan/Recommendation BP with improvement potassium being replaced . last HD on saturday no evidence of fluid overload . stable for dc from renal standpoint . If in house will schedule HD in AM Plan discussed with: Patient MARIA G LAWS MD May 29, 2024 10:39
[2024-05-29] MEDS: SODIUM CHLORIDE 0.9% 250 ML IV ONE (14:52)
--- NOTE | 2024-05-29 14:56 | DVHPNRES ---
Progress Note Date Seen: May 29, 2024 Resident Creating Document: KVNG KEEN RESIDENT Medical Necessity Reason Pt with a Central, PICC or Fol: No Subjective Review of Systems Patient is a 68-year-old male with past medical history of ESRD on HD, CHF, atrial fibrillation s/p ablation in 2023 on apixaban, type 2 diabetes, hypertension, who was brought in by ambulance due to symptomatic hypotension. According to the patient, yesterday on 05/28/2024 he went to attend his dialysis session around 12:30 p.m., while he was seated in the dialysis chair before the beginning of dialysis, he felt dizzy and when his blood pressure was checked and his systolic blood pressure ranged in the 70s, patient also notes he had 1 episode of vomiting. Subsequently ambulance was called and patient was brought to the hospital. Orthostatic vital signs showed patient's blood pressure 120/73 while seated and 100/70 while standing. Patient completed last hemodialysis session on Saturday05/26/2024 Past surgical history: Cardiac ablation, right arm fistula Home medications: Apixaban, amlodipine, aspirin, atenolol, bumetanide, fluticasone, insulin, losartan, nortriptyline, pravastatin Past Hospitalization: Was discharged 2 weeks ago after being hospitalized for 2 months for [place] syndrome due to allopurinol Social & Personal history: Patient lives with his caregiver. Denies smoking, denies drinking alcohol, denies using drugs. Allergies: Allopurinol Patient seen and examined at bedside. Patient is alert and oriented to time, place person and responding to all questions. Eyes: No Pain, No Vision change, No Conjunctivae inflammation, No Eyelid inflammation, No Other, No Redness ENT: No Ear pain, No Ear discharge, No Nose pain, No Nose discharge, No Nose congestion, No Mouth pain, No Mouth swelling, No Throat pain, No Throat swelling, No Other Cardiovascular: No Chest Pain, No Palpitations, No Orthopnea, No Paroxysmal No Dyspnea, No Edema, No Lt Headedness, No Other Respiratory: No Cough, No Dry, No Shortness of breath, No SOB with exertion, No Wheezing, No Hemoptysis, No Pleuritic Pain, No Sputum, No Other Gastrointestinal: No Nausea, No Vomiting, No Abdominal Pain, No Diarrhea, No Constipation, No Melena, No Hematochezia, No Other Genitourinary: No Dysuria, No Frequency, No Incontinence, No Hematuria, No Retention, No Other Musculoskeletal: No other, No neck pain, No shoulder pain, No arm pain, No back pain, No hand pain, No leg pain, No foot pain Skin: No Rash, No Lesions, No Jaundice, No Bruising, No Other Objective vital signs Vital Sign Date Time Temp Pulse Resp B/P (MAP) Pulse Ox O2 Delivery O2 Flow Rate FiO2 05/29/24 12:15 97.8 60 19 130/62 (84) 99 97.8 05/29/24 02:49 Room Air* 0 21 Total Intake and Output 05/28/24 05/28/24 05/29/24 15:00 23:00 07:00 Intake Total 150 ml Output Total 0 ml Balance 150 ml medications Current Medications Medications Dose Ordered Sig/Pedro Route Start Time Stop Time Status Last Admin Dose Admin Nitroglycerin 0.4 mg Q5MINP PRN SL 05/28/24 22:00 Morphine Sulfate 2 mg Q30M PRN IV 05/28/24 22:00 Apixaban 5 mg BID PO 05/28/24 22:00 05/29/24 09:32 5 MG Pantoprazole Sodium 40 mg DAILY@0600 PO 05/30/24 06:00 Examination General Appearance: Cooperative. Well developed. Well nourished. NAD. Dry mucous membranes Head Exam: Normal inspection Neck Exam: Normal inspection. Non-tender. Normal alignment Pulmonary/Respiratory: Chest non-tender. Clear bilateral breath sounds, no crackles, no wheezing. Cardiovascular/Chest: Regular rate and rhythm. No murmurs. No JVD. Peripheral Pulses: 2+ Radial (R). 2+ Radial (L). 2+ Pedal (R). 2+ Pedal (L) Abdominal Exam: Normal bowel sounds. Soft. normal abdomen, no visible veins, Nontender. No hepatospenomegaly. No masses Upper extremities: Right arm fistula noted, functional Lower extremities: Negative lower extremity edema Neuro/Mental Status: A&O x4. Coherent. Thoughts/Psych: Normal thought pattern. Appropriate mood and affect. Good judgement and insight Skin Exam: Normal inspection. Normal color. Warm. Dry laboratory and microbiology Laboratory Tests 05/29/24 05:10 Test 05/29/24 05:10 Range/Units Serum Glucose 99 74-106 mg/dL Labs and/or images reviewed: Labs reviewed by me, Image(s) reviewed by me Problem List/Assessment/Plan Problem List/Assessment/Plan Dizziness due to orthostatic hypotension Dehydration causing orthostatic hypotension Possible KYMBERLY likely hemodynamically mediated/VMN due to above - IV NS 250 cc bolus ESRD on HD Saturday, , Saturday Anemia, likely of chronic disease due to above Hypokalemia, 2.9, resolved - nephrology on board, possible dialysis tomorrow if patient is still in the hospital - p.o. potassium 40 mEq once followed by p.o. potassium 25 mEq History of congestive heart failure, currently stable Atrial fibrillation, s/p ablation in 2023 Pulmonary hypertension, moderate-severe Chronic respiratory failure, with hypoxia - echocardiogram from 2022 shows ejection fraction 65%, moderately dilated right ventricle and right atrium. RVSP 50 mm of Hg. Moderate degree pulmonary hypertension. Normal valves. No effusion. - CXR: Cardiomegaly with mild congestion - patient currently on 2 L O2 via NC - resume home medication apixaban 5 mg b.i.d. Type 2 diabetes, Hb A1c < 3.8 - monitor Chronic pain - lidocaine patch PUD prophylaxis: protonix 40mg Goals of care: Full code, discussed for >16 minutes on 05/29/2024 Plan discussed with patient and patient's caregiver at bedside in great detail were all questions were answered and concerns were addressed Plan discussed with Dr. Soto Plan discussed with: Patient, Other (Caregiver, RN) Date of Service: May 29, 2024 Billing Provider: DARIO SOTO MD Common Visit Codes: 82510-[id number] INP/OBS CARE(HIGH) KVNG KEEN May 29, 2024 14:56 DARIO SOTO MD Jun 04, 2024 14:07
[2024-05-29] MEDS ORDERED: DEXTROSE (50%) 50ML SYRG IV PRN ×2 (20:30→21:15)
[2024-05-29] MEDS ORDERED: CARI-277 PO (21:08)
[2024-05-29] MEDS: CARISOPRODOL 350 MG TAB PO PRN (21:43)
[2024-05-29] MEDS: LIDOCAINE 5% TOPICAL PATCH TOP ONE (21:44)
[2024-05-29] MEDS ORDERED: ACCU-CHEK COMFORT CURVE STRIP VI SCH ×2 (22:00)
[2024-05-29] MEDS ORDERED: InsuLIN REG 1unit/0.01ml Soln (100units/ml) SC SCH ×2 (22:00)
[2024-05-29] MEDS ORDERED: TROLAMINE SALICYLATE 10% TOP CREAM TOP SCH (22:00)
[2024-05-29 23:31] LABS: Urine Bacteria FEW /hpf (None Seen); Urine Blood TRACE /uL (Negative); Urine Clarity Turbid (Clear); Urine Color Yellow (Yellow); Urine Hyaline Cast FEW /lpf (0 - 2); Urine Protein, UAD 1+ (Negative); Urine Specific Gravity 1.025 (1.001-1.035); Urine Squamous Epithelial Cell FEW /hpf (<5); Urine Urobilinogen 2 mg/dL (Negative); Urine WBC 20 /HPF (0-3); Urine pH 5.5 (5.0-9.0)
[2024-05-30] VITALS (8 sets, daily range): BP systolic 108–141; BP diastolic 63–79; PULSE 52–88; RESP 16–20; TEMP 97.5–97.8; O2SAT 93–100
[2024-05-30] MEDS: PANTOPRAZOLE 40 MG TAB PO SCH (06:31)
[2024-05-30 10:19] LABS: Basophils # (auto) 0 10 ^3/uL (0-0.2); Monocytes # (auto) 0.4 10 ^3/uL (0-1.3); White Blood Cell 3.8 10^3/uL (4.4-10.8)
[2024-05-30 10:21] LABS: Eosinophils # (auto) 0.1 10 ^3/uL (0-0.8); Eosinophils % (auto) 3.8 % (0.0-7.0); Hematocrit 28.8 % (41.0-53.0); Mean Corpuscular Hgb Conc. 31.4 g/dL (32.0-36.0); Mean Corpuscular Volume 85.9 fL (80.0-100.0); Monocytes % (auto) 11.7 % (0.0-12.0); Neutrophils # (auto) 2.2 10 ^3/uL (1.6-8.6); Neutrophils % (auto) 56.5 % (37.0-80.0); Nucleated Red Blood Cells % 0.2 %; Platelet Count (auto) 216 10^3/uL (140-450); Red Blood Cells 3.35 10^6/uL (4.5-5.90); Red Cell Distribution Width 15.8 % (11.8-14.3)
[2024-05-30 10:33] LABS: Sodium 138 mmol/L (136-145)
[2024-05-30 10:34] LABS: Anion Gap 11 (5-15); Calcium 8.8 mg/dL (8.7-10.4); Carbon Dioxide 29 mmol/L (20-31)
[2024-05-30 10:37] LABS: Chloride 98 mmol/L (98-107); Potassium 3.5 mmol/L (3.5-5.1)
[2024-05-30 10:39] LABS: BUN/Creatinine Ratio 4.7 (10.0-20.0)
[2024-05-30 10:40] LABS: Blood Urea Nitrogen 36 mg/dL (9-23); Glucose 107 mg/dL (74-106)
--- NOTE | 2024-05-30 11:11 | DVHDSRES ---
Discharge Summary Date of Admission Resident Creating Document: KVNG KEEN RESIDENT May 28, 2024 at 21:51 Date of Discharge: May 30, 2024 Admitting Diagnosis symptomatic hypotension Labs/Diagnostic Data: Laboratory Results Test 05/30/24 09:50 05/29/24 23:16 05/29/24 20:17 05/29/24 06:48 White Blood Count 3.8 10^3/uL (4.4-10.8) Red Blood Count 3.35 10^6/uL (4.5-5.90) Hemoglobin 9.0 g/dL (13.5-17.5) Hematocrit 28.8 % (41.0-53.0) Mean Corpuscular Volume 85.9 fL (80.0-100.0) Mean Corpuscular Hemoglobin 27.0 pg (28.0-32.0) Mean Corpuscular Hemoglobin Concent 31.4 g/dL (32.0-36.0) Red Cell Distribution Width 15.8 % (11.8-14.3) Platelet Count 216 10^3/uL (140-450) Mean Platelet Volume 8.6 fL (6.9-10.8) Neutrophils (%) (Auto) 56.5 % (37.0-80.0) Lymphocytes (%) (Auto) 27.0 % (10.0-50.0) Monocytes (%) (Auto) 11.7 % (0.0-12.0) Eosinophils (%) (Auto) 3.8 % (0.0-7.0) Basophils (%) (Auto) 1.0 % (0.0-2.0) Neutrophils # (Auto) 2.2 10 ^3/uL (1.6-8.6) Lymphocytes # (Auto) 1.0 10 ^3/uL (0.4-5.4) Monocytes # (Auto) 0.4 10 ^3/uL (0-1.3) Eosinophils # (Auto) 0.1 10 ^3/uL (0-0.8) Basophils # (Auto) 0 10 ^3/uL (0-0.2) Nucleated Red Blood Cells 0.2 % Sodium Level 138 mmol/L (136-145) Potassium Level 3.5 mmol/L (3.5-5.1) Chloride Level 98 mmol/L (98-107) Carbon Dioxide Level 29 mmol/L (20-31) Anion Gap 11 (5-15) Blood Urea Nitrogen 36 mg/dL (9-23) Creatinine 7.60 mg/dL (0.700-1.30) Glomerular Filtration Rate Calc 7 mL/min (>90) BUN/Creatinine Ratio 4.7 (10.0-20.0) Serum Glucose 107 mg/dL (74-106) Calcium Level 8.8 mg/dL (8.7-10.4) Urine Color Yellow (Yellow) Urine Clarity Turbid (Clear) Urine pH 5.5 (5.0-9.0) Urine Specific [place] 1.025 (1.001-1.035) Urine Protein 1+ (Negative) Urine Ketones Negative (Negative) Urine Blood Trace /uL (Negative) Urine Nitrite Negative (Negative) Urine Bilirubin 1+ (Negative) Urine Urobilinogen 2 mg/dL (Negative) Urine Leukocyte Esterase 2+ /uL (Negative) Urine RBC 6 /hpf (0 - 3) Urine Microscopic WBC 20 /HPF (0-3) Urine Squamous Epithelial Cells Few /hpf (<5) Urine Bacteria Few /hpf (None Seen) Urine Hyaline Casts Few /lpf (0 - 2) Urine Glucose Normal mg/dL (Normal) POC Glucose 161 mg/dl (70-106) Prothrombin Time 12.9 sec (9.3-11.8) Prothrombin Time INR 1.24 (0.9-1.15) Activated Partial Thromboplast Time 29.7 SEC (24.5-34.5) Test 05/29/24 05:10 05/28/24 23:55 05/28/24 19:11 Erythrocyte Sedimentation Rate 28 mm/hr (0-20) Hemoglobin A1c < 3.8 % A1C (<5.7) Iron Level 41 ug/dL (65-175) Total Iron Binding Capacity 174 ug/dL (250-425) Percent Iron Saturation 23.6 % (20-55) Ferritin 759.3 ng/mL (22-322) Total Bilirubin 0.3 mg/dL (0.2-1.0) Aspartate Amino Transferase (AST) 11 U/L (13-40) Alanine Aminotransferase (ALT) < 9 U/L (7-40) Alkaline Phosphatase 105 U/L (46-116) C-Reactive Protein High Sensitivity 0.81 mg/dL (<1.0) B-Type Natriuretic Peptide 64.43 pg/mL (0-100) Total Protein 6.6 g/dL (5.7-8.2) Albumin 3.5 g/dL (3.2-4.8) Thyroid Stimulating Hormone (TSH) 0.59 uIU/mL (0.55-4.78) Influenza Type A Antigen Negative (Negative) Influenza Type B Antigen Negative (Negative) SARS-CoV-2 Antigen (Rapid) Negative (NEGATIVE) Magnesium Level 2.1 mg/dL (1.6-2.6) Troponin I High Sensitivity 15 ng/L (</=54) Other Laboratory Tests 05/30/24 09:50 Brief Hx & Hospital Course: Patient is a 68-year-old male with past medical history of ESRD on HD, CHF, atrial fibrillation s/p ablation in 2023 on apixaban, type 2 diabetes, hypertension, who was brought in by ambulance due to symptomatic hypotension. According to the patient, yesterday on 05/28/2024 he went to attend his dialysis session around 12:30 p.m., while he was seated in the dialysis chair before the beginning of dialysis, he felt dizzy and when his blood pressure was checked and his systolic blood pressure ranged in the 70s, patient also notes he had 1 episode of vomiting. Subsequently ambulance was called and patient was brought to the hospital. Orthostatic vital signs showed patient's blood pressure 120/73 while seated and 100/70 while standing. Patient completed last hemodialysis session on Saturday05/26/2024 Hospital course: Patient was given IV NS 250 cc bolus, Nephrology was consulted. Patient's potassium was replaced gently with 40 mEq p.o. once and then another 25 mEq p.o. potassium. Home medication apixaban was also continued. For his chronic pain patient was given a lidocaine patch to which he responded well. On the day of discharge, patient completed his hemodialysis session in the hospital. Patient had stable vital signs and appeared well. Details of his hospitalization were explained to the patient were all questions were answered and concerns were addressed. 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 His hospital course was uncomplicated. General Appearance: Cooperative. Well developed. Well nourished. NAD. Dry mucous membranes Head Exam: Normal inspection Neck Exam: Normal inspection. Non-tender. Normal alignment Pulmonary/Respiratory: Chest non-tender. Clear bilateral breath sounds, no crackles, no wheezing. Cardiovascular/Chest: Regular rate and rhythm. No murmurs. No JVD. Peripheral Pulses: 2+ Radial (R). 2+ Radial (L). 2+ Pedal (R). 2+ Pedal (L) Abdominal Exam: Normal bowel sounds. Soft. normal abdomen, no visible veins, Nontender. No hepatospenomegaly. No masses Upper extremities: Right arm fistula noted, functional Lower extremities: Negative lower extremity edema Neuro/Mental Status: A&O x4. Coherent. Thoughts/Psych: Normal thought pattern. Appropriate mood and affect. Good judgement and insight Skin Exam: Normal inspection. Normal color. Warm. Dry Condition at Discharge: Fair Final Diagnosis/Problems List ESRD on HD Saturday, , Saturday KYMBERLY likely hemodynamically mediated/VMN Dizziness due to orthostatic hypotension Dehydration causing orthostatic hypotension Anemia, likely of chronic disease due to above Hypokalemia, 2.9, resolved History of congestive heart failure, currently stable Atrial fibrillation, s/p ablation in 2023 Pulmonary hypertension, moderate-severe Chronic respiratory failure with hypoxia, on home O2 2-3 L Type 2 diabetes, Hb A1c < 3.8 Chronic pain Discharge Disposition: Home Discharge Instruct/Medications Diet: Renal Activity: No Restrictions, As Tolerated Follow Up/Referral: please follow up with pcp in 1-2 weeks Please follow up with Nephrology in the outpatient clinic please follow in discharge clinic Medications: continue home medications Discharge Statement: "Patient was advised to return to the ER or call 911 if any headaches, dizziness, shortness of breath, chest pain, abdominal pain, bleeding, fevers, or worsening of medical condition. Patient was counseled about treatment plan, medications, possible side effects, patientverbalized understanding. All questions were answered to the best of my ability. This discharge took greater then 30 minutes in planning, reviewing documentation, counseling the patient, and discussing with other team members." ASSESSMENT ASSESSMENT Assessment Dizziness due to orthostatic hypotension Dehydration causing orthostatic hypotension ESRD on HD Saturday, , Saturday Anemia, likely of chronic disease due to above Hypokalemia, 2.9, resolved History of congestive heart failure, currently stable Atrial fibrillation, s/p ablation in 2023 Pulmonary hypertension, moderate-severe Chronic respiratory failure, on home O2 2-3 L Type 2 diabetes, Hb A1c < 3.8 Chronic pain KVNG KEEN RESIDENT May 30, 2024 11:11
[2024-05-30] MEDS ORDERED: EPOETIN ALFA-EPBX 4,000 UNIT/ML VIAL SC ONE (18:45)
[2024-06-01 11:18] LABS: Hepatitis A Ab IgM Negative; Hepatitis B Core IgM Negative (Negative); Hepatitis B Surface Antigen Negative (Negative); Hepatitis C Antibody Negative (Negative)
== END 2024-05-30 20:14 | disposition home or self-care (01) | DRG 640 ==
LOC: ER 14:03 → EDBD 14:03 → OVERFLOW 21:51 → TELE-EAST 22:01
PROVIDERS: ADMIT Student in an Organized Health Care Education/Training Program; ATTEND Student in an Organized Health Care Education/Training Program
PROC: 5A1D70Z Performance of Urinary Filtration, Intermittent, Less than 6 Hours Per Day (ICD-10-PCS; principal; 2024-05-30)
DX: E86.0 Dehydration (principal); N17.0 Acute kidney failure with tubular necrosis; N18.6 End stage renal disease; I13.2 Hypertensive heart and chronic kidney disease with heart failure and with stage 5 chronic kidney disease, or end stage renal disease; I50.32 Chronic diastolic (congestive) heart failure; J96.11 Chronic respiratory failure with hypoxia; I95.1 Orthostatic hypotension; E11.22 Type 2 diabetes mellitus with diabetic chronic kidney disease; Z20.822 Contact with and (suspected) exposure to COVID-19; E78.5 Hyperlipidemia, unspecified; E87.6 Hypokalemia; M10.9 Gout, unspecified; J44.9 Chronic obstructive pulmonary disease, unspecified; D63.8 Anemia in other chronic diseases classified elsewhere; I48.0 Paroxysmal atrial fibrillation; I27.20 Pulmonary hypertension, unspecified; G89.29 Other chronic pain; Z99.2 Dependence on renal dialysis; Z82.49 Family history of ischemic heart disease and other diseases of the circulatory system; Z79.4 Long term (current) use of insulin; Z79.899 Other long term (current) drug therapy
CPT/HCPCS: 36415; 71045; 80048; 80053; 80074; 81001; 82728; 82962; 83036; 83540; 83550; 83735; 83880; 84132; 84443; 84484; 85025; 85610; 85652; 85730; 86141; 87426; 87804; 90935; 93005; 99291; G0378